=== PATIENT | female | born 1950 | race Caucasian/White ===

== ENCOUNTER 2017-06-22 09:09 | Day surgery (SDC) | payer BC ==
[~2017-06-22] VITALS: Ht 154.9 cm; Wt 43.1 kg
[~2017-06-22 09:09] MED LIST: LEVSOD75; LIOT5; VAGIFEM10 MCG; Vivelle-Dot1 EAC1
== END 2017-06-22 12:17 | disposition home or self-care (01) ==
LOC: ORSCSDS 09:09
PROVIDERS: Podiatrist Foot & Ankle Surgery
PROC: 0QSQ04Z Reposition Right Toe Phalanx with Internal Fixation Device, Open Approach (ICD-10-PCS; principal; 2017-06-22 10:30)
PROC: 0QSN04Z Reposition Right Metatarsal with Internal Fixation Device, Open Approach (ICD-10-PCS; principal; 2017-06-22 10:30)
DX: M20.11 Hallux valgus (acquired), right foot (principal); E03.9 Hypothyroidism, unspecified; Z79.899 Other long term (current) drug therapy
CPT/HCPCS: C1713; J0690; J2250; J2370; J2405; J3010

== ENCOUNTER → 2017-07-26 | Outpatient (CLI) | payer BC, MEDICARE | END | disposition home or self-care (01) | LOC: LAB 14:40 | DX: M86.171 Other acute osteomyelitis, right ankle and foot (principal) | CPT/HCPCS: 87070; 87075; 87077; 87147; 87186; 87205 ==

== ENCOUNTER 2023-07-13 05:32 | Emergency (ER) | payer BC ==
[~2023-07-13] VITALS: Ht 154.9 cm; Wt 43.1 kg
[~2023-07-13 05:32] MED LIST changes: +Colace100 MG PO; +Miralax17 GM PO
[2023-07-13 06:29] VITALS: BP 143/82
[2023-07-13] MEDS ORDERED: MELO7.5 PO (06:34)
[2023-07-13] MEDS ORDERED: EUTHYROX75 MC1 PO (06:35)
[2023-07-13] MEDS ORDERED: LIOT5 PO (06:36)
[2023-07-13] MEDS ORDERED: NAPR500 PO (08:10)
[2023-07-13] MEDS ORDERED: PRED20 PO (08:10)
[2023-07-13] MEDS ORDERED: CYCL10 PO (08:10)
[2023-07-13] MEDS ORDERED: LIDO700A20 TOP (08:10)
== END 2023-07-13 08:30 | disposition home or self-care (01) ==
LOC: ER 05:32
DX: M54.16 Radiculopathy, lumbar region (principal); Z79.899 Other long term (current) drug therapy; Z88.1 Allergy status to other antibiotic agents
CPT/HCPCS: 72100; 96372; 99283-25; A9270; J1100; J1885

== ENCOUNTER → 2024-05-19 | Outpatient (CLI) | payer MEDICARE ==
[~2024-05-19] MED LIST changes: +CYCL10 PO; +EUTHYROX75 MC1 PO; +LIDO700A20 TOP; +LIOT5 PO; +MELO7.5 PO; +NAPR500 PO; +PRED20 PO
[2024-05-19 11:32] LABS: BASOPHILS ABSOLUTE AUTO 0.06 K/mm3 (0.00-0.23); BASOPHILS PERCENT AUTO 1 % (0-2); EOSINOPHILS ABSOLUTE AUTO 0.01 K/mm3 (0.00-0.68); EOSINOPHILS PERCENT AUTO 0 % (0-6); Hematocrit 42.5 % (33.0-51.0); Hemoglobin 14.2 g/dL (11.5-16.0); IMMATURE GRAN ABSOLUTE AUTO 0.02 K/mm3 (0.00-0.10); IMMATURE GRAN PERCENT AUTO 0 % (0-1); LYMPHOCYTES PERCENT AUTO 16 % (21-46); MONOCYTES PERCENT AUTO 12 % (4-13); Mean Corpuscular HGB 30.8 pg (26.0-34.0); Mean Corpuscular HGB Conc 33.4 g/dL (31.5-36.5); Mean Corpuscular Volume 92 fL (80-100); Mean Platelet Volume 9.9 fL (9.1-12.4); NEUTROPHILS ABSOLUTE AUTO 5.31 K/mm3 (1.96-9.15); NEUTROPHILS PERCENT AUTO 71 % (41-73); Platelet Count 255 K/mm3 (150-400); RDW Standard Deviation 43.8 fL (35.1-46.3); Red Blood Cell Count 4.61 M/mm3 (3.80-5.20)
[2024-05-19 11:47] LABS: Albumin, Blood 3.8 g/dL (3.4-5.0); Bilirubin, Total 0.7 mg/dL (0.1-1.0); Bun/Creatinine Ratio 15.9 (12.0-20.0); Calcium, Blood 9.2 mg/dL (8.5-10.1); Creatinine, Blood 1.07 mg/dL (0.40-1.00); Globulin, Blood 3.8 g/dL (2.2-4.0); Potassium, Blood 4.2 mmol/L (3.5-5.5); Total Protein, Blood 7.6 g/dL (6.4-8.2)
== END | disposition home or self-care (01) ==
LOC: LAB SHORT 11:28 → LAB 11:28
PROVIDERS: Physician Assistant
DX: R10.9 Unspecified abdominal pain (principal); R06.00 Dyspnea, unspecified
CPT/HCPCS: 80053; 83690; 84484; 85025

== ENCOUNTER → 2024-08-14 | Outpatient (CLI) | payer MEDICARE ==
[2024-08-17 06:07] LABS: PANCREATIC ELASTASE,FECAL >800 ug/g (>=100)
== END | disposition home or self-care (01) ==
LOC: LAB SHORT 11:18 → LAB 11:18
PROVIDERS: Physician Assistant
DX: R10.9 Unspecified abdominal pain (principal); K59.00 Constipation, unspecified; R13.10 Dysphagia, unspecified
CPT/HCPCS: 82653